=== PATIENT | male | born 1985 | race Caucasian/White ===

== ENCOUNTER 2024-08-07 03:07 | Emergency (ER) | payer OTHER ==
[~2024-08-07] VITALS: Ht 182.9 cm; Wt 149.7 kg
[2024-08-07] MEDS ORDERED: GUAIFENESIN/CODEINE 10 ML UDC ONE (03:45)
[2024-08-07] MEDS ORDERED: predniSONE 20 MG TABLET ONE (03:45)
[2024-08-07] MEDS: GUAIFENESIN/D-METHORPHAN HB 5 ML UDC PO ONE (03:49)
[2024-08-07] MEDS: predniSONE 50 MG TABLET PO ONE (03:49)
[2024-08-07] MEDS ORDERED: PRED50TA PO (04:37)
[2024-08-07 05:47] VITALS: BP 147/85; TEMP 98.6; O2SAT 97
== END 2024-08-07 05:47 | disposition home or self-care (01) ==
LOC: ER 03:13
DX: R09.1 Pleurisy (principal); R05.9 Cough, unspecified; M54.9 Dorsalgia, unspecified; I10 Essential (primary) hypertension; Z79.52 Long term (current) use of systemic steroids; Z20.822 Contact with and (suspected) exposure to COVID-19
CPT/HCPCS: 99284; 71045; 87426; 87804 ×2; J7512